=== PATIENT | male | born 1975 | race Caucasian/White ===

== ENCOUNTER 2023-04-16 19:39 | Outpatient (REF) | payer MEDICAID, SELFPAY ==
[2023-04-16 20:25] LABS: Influenza A PCR NEGATIVE (Negative); Influenza B PCR NEGATIVE (Negative); Resp Syncy Virus RNA Qual PCR NEGATIVE (Negative); SARS COV2 PCR INHOUSE NEGATIVE (Negative)
== END 2023-04-16 19:40 | disposition home or self-care (01) ==
LOC: HO.HHCLNP 19:39
PROVIDERS: Visit Provider Family Medicine
DX: Z11.52 Encounter for screening for COVID-19 (principal); R05.9 Cough, unspecified
CPT/HCPCS: 0241U

== ENCOUNTER 2023-08-08 14:33 | Outpatient (REF) | payer MEDICAID, SELFPAY ==
[2023-08-08 17:21] LABS: MANUAL DIFF FLAG NO
[2023-08-08 17:26] LABS: Basophils Percent Auto 0.4 % (0-2); Eosinophils Percent Auto 0.4 % (0-4); Hematocrit 40.6 % (42.0-52.0); Hemoglobin 12.8 g/dl (14.0-18.0); Imm Gran Abs Auto 0.02 X10*3/uL (0.00-0.03); Imm Gran Pct Auto 0.3 % (0.0-0.4); Lymphocytes Absolute Auto 1.9 X10*3/uL (1.2-4.9); Lymphocytes Percent Auto 24.6 % (20-40); Mean Corpuscular HGB Conc 31.5 g/dl (31.0-36.0); Mean Corpuscular Hemoglobin 27.8 pg (27.0-33.0); Mean Corpuscular Volume 88.1 fL (80.0-98.0); Monocytes Absolute Auto 0.5 X10*3/uL (0.1-1.2); Monocytes Percent Auto 6.8 % (2-11); Neutrophils Absolute Auto 5.3 x10*3/uL (2.0-8.3); Neutrophils Percent Auto 67.5 % (45-73); Platelet Count 243 X10*3/uL (160-400); Red Blood Count 4.61 X10*6/uL (4.60-5.80); Red Cell Distribution Width 14.1 % (11.0-16.0); White Blood Count 7.8 X10*3/uL (4.8-10.8)
[2023-08-08 17:50] LABS: Alanine Aminotransferase 31 U/L (0-40); Albumin Level 4.6 g/dL (3.5-5.0); Alkaline Phosphatase 77 U/L (39-117); Anion Gap 10 (12-20); Aspartate Amino Transferase 31 U/L (5-37); Bilirubin Total 0.3 mg/dL (0.0-1.0); Blood Urea Nitrogen 13 mg/dL (9-16); Calcium 9.3 mg/dL (8.4-10.2); Carbon Dioxide 30 mmol/L (22-29); Chloride 103 mmol/L (96-108); Cholesterol 292 mg/dL (<200); Estimated Glomerular Filt Rate > 60; Glucose Random 81 mg/dL (60-115); HDL Cholesterol 42 mg/dL (>40); LDL Cholesterol Calculated 213 mg/dL (<100); Sodium 139 mmol/L (135-145); Total Protein 7.9 g/dL (6.5-8.0); Triglycerides 188 mg/dL (<150)
[2023-08-08 18:05] LABS: TSH reflex Free T4 1.23 uIU/mL (0.32-4.0)
== END 2023-08-08 14:34 | disposition home or self-care (01) ==
LOC: HO.CHCLDS 14:33
PROVIDERS: Visit Provider Internal Medicine
DX: I10 Essential (primary) hypertension (principal); D64.9 Anemia, unspecified
CPT/HCPCS: 36415; 80053; 80061; 84443; 85025

== ENCOUNTER 2023-12-11 15:38 | Outpatient (REF) | payer MEDICAID, SELFPAY ==
[2023-12-11 17:31] LABS: MANUAL DIFF FLAG NO
[2023-12-11 17:33] LABS: Basophils Percent Auto 0.2 % (0-2); Eosinophils Percent Auto 0.4 % (0-4); Hematocrit 43.9 % (42.0-52.0); Hemoglobin 14.1 g/dl (14.0-18.0); Imm Gran Abs Auto 0.04 X10*3/uL (0.00-0.03); Imm Gran Pct Auto 0.4 % (0.0-0.4); Lymphocytes Absolute Auto 1.3 X10*3/uL (1.2-4.9); Lymphocytes Percent Auto 13.4 % (20-40); Mean Corpuscular HGB Conc 32.1 g/dl (31.0-36.0); Mean Corpuscular Hemoglobin 28.1 pg (27.0-33.0); Mean Corpuscular Volume 87.6 fL (80.0-98.0); Mean Platelet Volume 10.6 fL (9.4-12.4); Monocytes Absolute Auto 0.6 X10*3/uL (0.1-1.2); Monocytes Percent Auto 6.4 % (2-11); Neutrophils Absolute Auto 7.9 x10*3/uL (2.0-8.3); Neutrophils Percent Auto 79.2 % (45-73); Platelet Count 230 X10*3/uL (160-400); Red Blood Count 5.01 X10*6/uL (4.60-5.80); Red Cell Distribution Width 14.5 % (11.0-16.0)
[2023-12-11 18:17] LABS: Anion Gap 13 (12-20); Blood Urea Nitrogen 12 mg/dL (9-16); Calcium 10.1 mg/dL (8.4-10.2); Carbon Dioxide 29 mmol/L (22-29); Chloride 102 mmol/L (96-108); Estimated Glomerular Filt Rate > 60; Glucose Fasting 97 mg/dL (60-99); Potassium 4.2 mmol/L (3.3-5.1); Sodium 140 mmol/L (135-145)
[2023-12-11 18:36] LABS: TSH reflex Free T4 0.43 uIU/mL (0.32-4.0)
[2023-12-17 12:48] LABS: Testosterone, Free 72.9 pg/mL (35.0-155.0); Testosterone, Total 510 ng/dL (250-1100)
== END 2023-12-11 15:39 | disposition home or self-care (01) ==
LOC: HO.CHCLDS 15:38
PROVIDERS: Visit Provider Internal Medicine
DX: R00.0 Tachycardia, unspecified (principal); N52.8 Other male erectile dysfunction; F33.2 Major depressive disorder, recurrent severe without psychotic features
CPT/HCPCS: 36415; 80048; 84402; 84403; 84443; 85025

== ENCOUNTER 2025-03-02 14:51 | Outpatient (REF) | payer MEDICAID, SELFPAY ==
[2025-03-02 18:37] LABS: MANUAL DIFF FLAG NO
[2025-03-02 18:47] LABS: Hematocrit 41.8 % (42.0-52.0); Hemoglobin 13.0 g/dl (14.0-18.0); Imm Gran Abs Auto 0.02 X10*3/uL (0.00-0.03); Imm Gran Pct Auto 0.3 % (0.0-0.4); Lymphocytes Absolute Auto 1.9 X10*3/uL (1.2-4.9); Mean Corpuscular HGB Conc 31.1 g/dl (31.0-36.0); Mean Corpuscular Hemoglobin 27.5 pg (27.0-33.0); Mean Corpuscular Volume 88.4 fL (80.0-98.0); NRBC Abs Auto 0.000 X10*3/uL (0.0-0.012); NRBC Pct Auto 0.0 /100WBC (0.0-0.2); Platelet Count 263 X10*3/uL (160-400); Red Blood Count 4.73 X10*6/uL (4.60-5.80); White Blood Count 7.3 X10*3/uL (4.8-10.8)
[2025-03-02 19:33] LABS: Alanine Aminotransferase 47 U/L (0-40); Albumin Level 4.6 g/dL (3.5-5.0); Alkaline Phosphatase 78 U/L (39-117); Anion Gap 10 (12-20); Aspartate Amino Transferase 60 U/L (5-37); Blood Urea Nitrogen 10 mg/dL (9-16); Calcium 9.4 mg/dL (8.4-10.2); Carbon Dioxide 31 mmol/L (22-29); Chloride 104 mmol/L (96-108); Cholesterol 229 mg/dL (<200); Estimated Glomerular Filt Rate > 60; HDL Cholesterol 45 mg/dL (>40); Potassium 4.3 mmol/L (3.3-5.1); Sodium 141 mmol/L (135-145); Total Protein 7.3 g/dL (6.5-8.0); Triglycerides 123 mg/dL (<150)
--- OUTSIDE RECORDS SUMMARY | 2025-03-02 21:07 | XMS_ITS | Encounter Summary ---
Author Organization [employer] Address 75 [facility] 7t [place] [address] Care Team Providers Care Keypuncher Name Role Phone Luis Leon MD Primary Care Provider [phone] Reason for Visit * Reason Comments Med Refill Encounter Details Date Type Department Care Team ([facility] st Contact Info) Description 11/30/2022 Refill [facility] CHC MED & PEDS [address] [place] [address] Luis Leon MD [address] [place] [address] Primary insomnia Social History Tobacco Use Types Packs/Day Years Used Date Smoking Tobacco: Every Day Cigarettes Cigars Smokeless Tobacco: Former Alcohol Use Standard Drinks/Week Comments Never 0 (1 standard drink = 0.6 oz pur e alcohol) Depression Answer Date Recorded Patient Health Questionnaire-9 Score 12 06/07/2022 Depression Answer Date Recorded Patient Health Questionnaire-2 Score 2 06/07/2022 Sex and Gender Information Value Date Recorded Sex Assigned at Male 03/11/2022 10:38 AM EDT Legal Sex Male 10:38 AM EDT Gender Identity Male 03/11/2022 10:38 AM EDT Sexual Orientation Choose not to disclose 2021 10:38 AM EDT COVID-19 Exposure Response Date Recorded In the last 10 days, have yo u been in contact with someone who was confirmed or suspected to have Coronavirus/COVID-19? No / Unsure 11/14/2022 9:17 AM EDT documented as of this encounter Plan of Treatment Upcoming Encounters Date Type Department Care Team (Late st Contact Info) Description 03/16/2025 11:00 AM EST Office Visit [facility] ADULT DENTAL [address] [place] [address] Niels Levin DMD 505 [place] [address] documented as of this encounter Visit Diagnoses Diagnosis Primary insomnia Persistent disorder of initiating or maintaining sleep documented in this encounter Additional Health Concerns Assessment Noted Time PHQ-9 Depression Total Score: 12 023 2:15 PM EST documented as of this encounter Care Teams Keypuncher Relationship Specialty Start Date End Date Luis Leon MD [address] [place] [address] PCP - General Internal Medicine 12/21/20 documented as of this encounter
--- OUTSIDE RECORDS SUMMARY | 2025-03-02 21:07 | XMS_ITS | Encounter Summary ---
Author Organization [employer] Address 75 [facility] 7t [place] [address] Care Team Providers Care Rug Measurer Name Role Phone Luis Leon MD Primary Care Provider [phone] Encounter Details Date Type Department Care Team (Late st Contact Info) Description 06/09/2023 Orders Only [facility] CHC MED & PEDS [address] [place], [place] [phone] Luis Leon MD [address] [place] [address] Annual physical exam (Primary Dx); Essential hypertension; Normocytic anemia Social History Tobacco Use Types Packs/Day Years Used Date Smoking Tobacco: Every Day Cigarettes Cigars Smokeless Tobacco: Former Alcohol Use Standard Drinks/Week Comments Never 0 (1 standard drink = 0.6 oz pur e alcohol) Depression Answer Date Recorded Patient Health Questionnaire-9 Score 12 06/07/2022 Housing Stability Answer Date Recorded What is your housing situation today? I have chavez burch 03/03/[address] you li ve. Do you have problems with any of the following? None of the above 03/03/2023 Food Insecurity Answer Date Recorded Within the past 12 months, y ou worried that your food would run out before you got money to buy more: Never True 03/03/2023 Within the past 12 months,th e food you bought just didn't last and you didn't have enough money to get more: Never True Transportation Answer Date Recorded In the past 12 months, has l ack of transportation kept you from medical appts, meetings, work or from getting things needed for daily living? No 03/03/2023 Utilities Answer Date Recorded In the past 12 months, has t he electric, gas, oil or water company threatened to shut off services in your home? No 03/03/2023 Depression Answer Date Recorded Patient Health Questionnaire-2 Score 2 06/07/2022 Sex and Gender Information Value Date Recorded Sex Assigned at Male 03/11/2022 10:38 AM EDT Legal Sex Male 10:38 AM EDT Gender Identity Male 03/11/2022 10:38 AM EDT Sexual Orientation Choose not to disclose 2021 10:38 AM EDT documented as of this encounter Plan of Treatment Upcoming Encounters Date Type Department Care Team (Late st Contact Info) Description 03/16/2025 11:00 AM EST Office Visit [facility] ADULT DENTAL [address] [place] [address] Niels Levin, DMD [address] [place] [address] documented as of this encounter Procedures Procedure Name Priority Date/Time Associated Diagnosis Comments TSH W/REFLEX TO FT4 Routine 08/08/2023 2 :33 PM EDT Normocytic anemia CBC WITH AUTO DIFFERENTIAL Routine 08/08/2023 2:33 PM EDT Normocytic anemia LIPID PANEL, STANDARD Routine 08/08/2023 2:33 PM EDT Essential hypertension COMPREHENSIVE METABOLIC PANEL Routine 08/08/2023 2:33 PM EDT Essential hypertension documented in this encounter Results * (ABNORMAL) Lipid Panel, Standard (08/08/2023 2:33 PM EDT) Triglycerides 188(H) <150 mg/dL [facility] Comment:Desirable Triglyceri de: less than 150 mg/dLBorderline High Triglyceride 150-199 mg/dLHigh Triglyceride: 200-499 mg/dLVery High Triglyceride: greater than or equal to 5OO mg/dL Cholesterol 292(H) <200 mg/dL [facility] Comment:Desirable Cholestero l: less than 200 mg/dLBorderline High Cholesterol: 200-239 mg/dLHigh Cholesterol: greater than 239 mg/dL LDL Cholesterol Calculated 213(H) <100 mg/dL [facility] Comment:Desirable LDL: less than 100 mg/dLNear Optimal/Above Optimal LDL: 110- 129 mg/dLBorderline High LDL: 130-159 mg/dLHigh LDL: 160-189 mg/dLVery High LDL: greater than or equal to 190 mg/dL HDL Cholesterol 42 >40 mg/dL [facility] Comment:Desirable HDL: great er than 40 mg/dL Note: This HDL assay may give artificially low results in patients with liver disease. Blood Venous blood specimen / Unknown 08/08/2023 2:33 PM EDT 08/08/2023 5:16 PM EDT Luis Leon MD LAB BLOOD ORDERABLES Final Result [facility] [address] [place] [phone] * (ABNORMAL) CBC auto differential (08/08/2023 2:33 PM EDT) White Blood Count 7.8 4.8 - 10.8 X10*3/uL [facility] Red Blood Count 4.61 4.60 - 5.80 X10*6/uL [facility] Hemoglobin 12.8(L) 14.0 - 18.0 g/dl [facility] Hematocrit 40.6(L) 42.0 - 52.0 % [facility] Mean Corpuscular Volume 88.1 80.0 - 98.0 fL [facility] Mean Corpuscular Hemoglobin 27.8 27.0 - 33.0 pg [facility] Mean Corpuscular HGB Conc 31.5 31.0 - 36.0 g/dl [facility] Red Cell Distribution Width 14.1 11.0 - 16.0 % [facility] Platelet Count 243 160 - 400 X10*3/uL [facility] Mean Platelet Volume 10.0 9.4 - 12.4 fL [facility] Neutrophils Percent Auto 67.5 45 - 73 % [facility] Imm Gran Pct Auto 0.3 0.0 - 0.4 % [facility] Lymphocytes Percent Auto 24.6 20 - 40 % [facility] Monocytes Percent Auto 6.8 2 - 11 % [facility] Eosinophils Percent Auto 0.4 0 - 4 % [facility] Basophils Percent Auto 0.4 0 - 2 % [facility] NRBC Pct Auto 0.0 0.0 - 0.2 /100WBC [facility] Neutrophils Absolute Auto 5.3 2.0 - 8.3 x10*3/uL [facility] Imm Gran Abs Auto 0.02 0.00 - 0.03 X10*3/uL [facility] Lymphocytes Absolute Auto 1.9 1.2 - 4.9 X10*3/uL [facility] Monocytes Absolute Auto 0.5 0.1 - 1.2 X10*3/uL [facility] Eosinophils Absolute Auto 0.0 0.0 - 0.4 X10*3/uL [facility] Basophils Absolute Auto 0.0 0.0 - 0.2 X10*3/uL [facility] NRBC Abs Auto 0.000 0.0 - 0.012 X10*3/uL [facility] Blood Venous blood specimen / Unknown 08/08/2023 2:33 PM EDT 08/08/2023 5:16 PM EDT us Luis Leon MD LAB BLOOD ORDERABLES Final Result [facility] [address] [place] [address] [phone] * TSH W/Reflex to FT4 (08/08/2023 2:33 PM EDT) TSH reflex Free T4 1.23 0.32 - 4.0 uIU/mL [facility] Blood Venous blood specimen / Unknown 08/08/2023 2:33 PM EDT 08/08/2023 5:16 PM EDT us Luis Leon MD LAB BLOOD ORDERABLES Final Result [facility] [address] [place] [address] [phone] * (ABNORMAL) Comprehensive Metabolic Panel (08/08/2023 2:33 PM EDT) Sodium 139 135 - 145 mmol/L [facility] Potassium 4.0 3.3 - 5.1 mmol/L [facility] Chloride 103 96 - 108 mmol/L [facility] Carbon Dioxide 30(H) 22 - 29 mmol/L [facility] Anion Gap 10(L) 12 - 20 [facility] Urea Nitrogen (BUN) 13 9 - 16 mg/dL [facility] Creatinine, Serum 1.01 0.5 - 1.4 mg/dL [facility] Estimated Glomerular Filt Rate >60 [facility] Comment:NOTE: For -Am erican individuals, multiply the result by 1.210.Chronic Kidney Disease: Estimated GFR < 60 mL/min/1.72q2Xybmak Kidney Disease: Estimated GFR < 15 mL/min/1.73m2 Glucose 81 60 - 115 mg/dL [facility] Calcium 9.3 8.4 - 10.2 mg/dL [facility] Bilirubin, Total 0.3 0.0 - 1.0 mg/dL [facility] Aspartate Amino Transferase 31 5 - 37 U/L [facility] Alanine Aminotransferase 31 0 - 40 U/L [facility] Total Protein 7.9 6.5 - 8.0 g/dL [facility] Albumin Level 4.6 3.5 - 5.0 g/dL [facility] Alkaline Phosphatase 77 39 - 117 U/L [facility] Blood Venous blood specimen / Unknown 08/08/2023 2:33 PM EDT 08/08/2023 5:16 PM EDT us Luis Leon MD LAB BLOOD ORDERABLES Final Result Performing Organization Address City/State/[facility] Co de Phone Number [facility] [address] [place] [address] [phone] documented in this encounter Visit Diagnoses Diagnosis Annual physical exam- Primary Routine general medical examination at a health care facility Essential hypertension Unspecified essential hypertension Normocytic anemia Unspecified anemia documented in this encounter Additional Health Concerns Assessment Noted Time PHQ-9 Depression Total Score: 12 023 2:15 PM EST documented as of this encounter Care Teams Rug Measurer Relationship Specialty Start Date End Date Luis Leon MD [address] [place] [address] PCP - General Internal Medicine 12/21/20 documented as of this encounter
--- OUTSIDE RECORDS SUMMARY | 2025-03-02 21:07 | XMS_ITS | Encounter Summary ---
Author Organization [employer] Address 75 [facility] 7t [place] [address] Care Team Providers Care Truck Mechanic Name Role Phone Luis Leon MD Primary Care Provider [phone] Reason for Visit * Reason Comments Med Refill Encounter Details Date Type Department Care Team ([facility] st Contact Info) Description 11/15/2022 Refill [facility] CHC MED & PEDS [address] [place] [address] Luis Leon MD [address] [place] [address] Primary insomnia Social History Tobacco Use Types [...] Description 03/16/2025 11:00 AM EST Office Visit [facility] ADULT DENTAL [address] [place] [address] Niels Levin DMD [address] [place] [address] documented as of this encounter Visit Diagnoses Diagnosis Primary insomnia Persistent disorder of initiating or maintaining sleep documented in this encounter Additional Health Concerns Assessment Noted Time PHQ-9 Depression Total Score: 12 023 2:15 PM EST documented as of this encounter Care Teams Truck Mechanic Relationship Specialty Start Date End Date Luis Leon MD [address] [place] [address] PCP - General Internal Medicine 12/21/20 documented as of this encounter
--- OUTSIDE RECORDS SUMMARY | 2025-03-02 21:07 | XMS_ITS | Encounter Summary ---
Author Organization [employer] Address 75 [facility] 7t [place] [address] Care Team Providers Care Lens Polisher Hand Name Role Phone Luis Leon MD Primary Care Provider [phone] Reason for Visit * Reason Comments Med Refill Encounter Details Date Type Department Care Team (Late st Contact Info) Description 07/03/2023 Refill [facility] DENT[facility] [address] [place] [address] Sarah Velázquez, BDS [address] [place], [place] [phone] Social History Tobacco Use Types Packs/Day Years [...] Description 03/16/2025 11:00 AM EST Office Visit [facility] ADULT DENTAL [address] [place] [address] Niels Levin, RODNEY [address] [place] [address] documented as of this encounter Visit Diagnoses Not on filedocumented in this encounter Additional Health Concerns Assessment Noted Time PHQ-9 Depression Total Score: 12 023 2:15 PM EST documented as of this encounter Care Teams Lens Polisher Hand Relationship Specialty Start Date End Date Luis Leon MD [address] [place] [address] PCP - General Internal Medicine 12/21/20 documented as of this encounter
--- OUTSIDE RECORDS SUMMARY | 2025-03-02 21:07 | XMS_ITS | Encounter Summary ---
Author Organization [employer] Address 75 [facility] 7t [place] [address] Care Team Providers Care Strainer Mill Operator Name Role Phone Luis Leon MD Primary Care Provider [phone] Reason for Visit * Reason Onset Date Comments Med Refill 05/18/2024 Encounter Details Date Type Department Care Team (Late st Contact Info) Description 05/18/2024 Refill [facility] CHC MED & PEDS [address] [place] [address] Luis Leon MD [address] [place] [address] Other male erectile dysfunction Social History Tobacco Use Types Packs/Day Years Used Date Smoking Tobacco: Every Day Cigarettes Cigars Smokeless Tobacco: Former Alcohol Use Standard Drinks/Week Comments Never 0 (1 standard drink = 0.6 oz pur e alcohol) Depression Answer Date Recorded Patient Health Questionnaire-9 Score 18 08/06/2023 Patient Health Questionnaire-9 Score 18 08/06/2023 Last PHQ-9: Questionnaire Data Not on file 0 08/06/2023 Housing Stability Answer Date Recorded What is [...] Answer Date Recorded Patient Health Questionnaire-2 Score 6 08/06/2023 Sex and Gender Information Value Date Recorded [...] 11:00 AM EST Office Visit [facility] ADULT DENTAL [address] [place] [address] Niels Levin, DMD [address] [place] [address] documented as of this encounter Visit Diagnoses Diagnosis Other male erectile dysfunction documented in this encounter Additional Health Concerns Assessment Noted Time PHQ-9 Depression Total Score: 18 024 10:20 AM EDT documented as of this encounter Care Teams Strainer Mill Operator Relationship Specialty Start Date End Date Luis Leon MD [address] [place] [address] PCP - General Internal Medicine 12/21/20 documented as of this encounter
--- OUTSIDE RECORDS SUMMARY | 2025-03-02 21:07 | XMS_ITS | Encounter Summary ---
Author Organization [employer] Address 75 [facility] 7 [place] [address] Care Team Providers Care Collection Administrator Name Role Phone Luis Leon MD Primary Care Provider [phone] Encounter Details Date Type Department Care Team (Late st Contact Info) Description 05/17/2024 Orders Only [facility] CHC MED & PEDS [address] [place], [place] [phone] Luis Leon MD [address] [place] [address] Social History Tobacco Use Types Packs/Day Years [...] Description 03/16/2025 11:00 AM EST Office Visit [facility] ADULT DENTAL [address] [place] [address] Niels Levin, RODNEY [address] [place] [address] documented as of this encounter Visit Diagnoses Not on filedocumented in this encounter Additional Health Concerns Assessment Noted Time PHQ-9 Depression Total Score: 18 024 10:20 AM EDT documented as of this encounter Care Teams Collection Administrator Relationship Specialty Start Date End Date Luis Leon MD [address] [place] [address] PCP - General Internal Medicine 12/21/20 documented as of this encounter
--- OUTSIDE RECORDS SUMMARY | 2025-03-02 21:07 | XMS_ITS | Encounter Summary ---
Author Organization [employer] Address 75 [facility] 7t [place] [address] Care Team Providers Care Vacuum Metalizing Supervisor Name Role Phone Luis Leon MD Primary Care Provider [phone] Reason for Visit * Reason Onset Date Comments Med Refill 11/14/2022 Encounter Details Date Type Department Care Team (Late st Contact Info) Description 11/14/2022 Refill [facility] CHC MED & PEDS [address] [place] [address] Luis Leon MD [address] [place] [address] Nel Social History Tobacco Use Types Packs/Day Years [...] Description 03/16/2025 11:00 AM EST Office Visit [facility] ADULT DENTAL [address] [place] [address] Mitchell Levinie, DMD [address] [place] [address] documented as of this encounter Visit Diagnoses Diagnosis Melasma Other dyschromia documented in this encounter Additional Health Concerns Assessment Noted Time PHQ-9 Depression Total Score: 12 023 2:15 PM EST documented as of this encounter Care Teams Vacuum Metalizing Supervisor Relationship Specialty Start Date End Date Luis Leon MD [address] [place] [address] PCP - General Internal Medicine 12/21/20 documented as of this encounter
--- OUTSIDE RECORDS SUMMARY | 2025-03-02 21:07 | XMS_ITS | Encounter Summary ---
Author Organization [employer] Address [address] [place] [address] 7t [place] [address] Care Team Providers Care Smart Energy Specialist Name Role Phone Luis Leon MD Primary Care Provider [phone] Reason for Visit * Reason Comments Med Refill Encounter Details Date Type Department Care Team ([facility] st Contact Info) Description 05/14/2024 Refill [facility] CHC MED & PEDS [address] [place] [address] Norma Jones MD [address] [place] [address] Intertrigo of web of toe Social History Tobacco Use Types Packs/Day Years [...] Upcoming Encounters Date Type Department Care Team ([facility] st Contact Info) Description 03/16/2025 11:00 AM EST Office Visit [facility]C ADULT DENTAL [address] [place] [address] Niels Levin DMD [address] [place] [address] documented as of this encounter Visit Diagnoses Diagnosis Intertrigo of web of toe documented in this encounter Additional Health Concerns Assessment Noted Time PHQ-9 Depression Total Score: 18 024 10:20 AM EDT documented as of this encounter Care Teams Smart Energy Specialist Relationship Specialty Start Date End Date Luis Leon MD [address] [place] [address] PCP - General Internal Medicine 12/21/20 documented as of this encounter
--- OUTSIDE RECORDS SUMMARY | 2025-03-02 21:07 | XMS_ITS | Encounter Summary ---
Author Organization [employer] Address [address] [place] [address] 7t [place] [address] Care Team Providers Care Pr Manager Name Role Phone Luis Leon MD Primary Care Provider [phone] Reason for Visit * Reason Onset Date Comments Med Refill 02/13/2024 Encounter Details Date Type Department Care Team (Late st Contact Info) Description 02/13/2024 Refill [facility] MED & PEDS [address] [place] [address] Norma Jones MD [address] [place] [address] Other male erectile dysfunction Social History Tobacco [...] Description 03/16/2025 11:00 AM EST Office Visit [facility] ADULT DENTAL [address] [place] [address] Niels Levin, DMD [address] [place] [address] documented as of this encounter Visit Diagnoses Diagnosis Other male erectile dysfunction documented in this encounter Additional Health Concerns Assessment Noted Time PHQ-9 Depression Total Score: 18 024 10:20 AM EDT documented as of this encounter Care Teams Pr Manager Relationship Specialty Start Date End Date Luis Leon MD [address] [place] [address] PCP - General Internal Medicine 12/21/20 documented as of this encounter
--- OUTSIDE RECORDS SUMMARY | 2025-03-02 21:07 | XMS_ITS | Encounter Summary ---
Author Organization [employer] Address [address] [place] [address] 7t [place] [address] Care Team Providers Care Lettuce Trimmer Name Role Phone Luis Leon MD Primary Care Provider [phone] Reason for Visit * Reason Onset Date Comments Med Refill 02/09/2024 Encounter Details Date Type Department Care Team (Late st Contact Info) Description 02/09/2024 Refill [facility] MED & PEDS [address] [place] [address] Norma Jones MD [address] [place] [address] Other male erectile dysfunction Social History Tobacco [...] Description 03/16/2025 11:00 AM EST Office Visit [facility] ADULT DENTAL [address] [place] [address] Niels Levin, DMD [address] [place] [address] documented as of this encounter Visit Diagnoses Diagnosis Other male erectile dysfunction documented in this encounter Additional Health Concerns Assessment Noted Time PHQ-9 Depression Total Score: 18 024 10:20 AM EDT documented as of this encounter Care Teams Lettuce Trimmer Relationship Specialty Start Date End Date Luis Leon MD [address] [place] [address] PCP - General Internal Medicine 12/21/20 documented as of this encounter
--- OUTSIDE RECORDS SUMMARY | 2025-03-02 21:08 | XMS_ITS | Encounter Summary ---
Author Organization [employer] Address 75 [facility] 7t [place] [address] Care Team Providers Care Geometry Professor Name Role Phone Luis Leon MD Primary Care Provider [phone] Reason for Visit * Reason Onset Date Comments Med Refill 11/14/2022 Encounter Details Date Type Department Care Team (Late st Contact Info) Description 11/14/2022 Refill [facility] CHC MED & PEDS [address] [place] [address] Luis Leon MD [address] [place] [address] Primary insomnia Social History Tobacco Use Types [...] Description 03/16/2025 11:00 AM EST Office Visit [facility] CHC ADULT DENTAL [address] [place] [address] Niels Levin, RODNEY [address] [place] [address] documented as of this encounter Visit Diagnoses Diagnosis Primary insomnia Persistent disorder of initiating or maintaining sleep documented in this encounter Additional Health Concerns Assessment Noted Time PHQ-9 Depression Total Score: 12 023 2:15 PM EST documented as of this encounter Care Teams Geometry Professor Relationship Specialty Start Date End Date Luis Leon MD [address] [place] [address] PCP - General Internal Medicine 12/21/20 documented as of this encounter
--- OUTSIDE RECORDS SUMMARY | 2025-03-02 21:08 | XMS_ITS | Encounter Summary ---
Author Organization [employer] Address 75 [facility] 7t [place] [address] Care Team Providers Care Wearing Apparel Shaker Name Role Phone Luis Leon MD Primary Care Provider [phone] Reason for Visit * Reason Comments Med Refill Encounter Details Date Type Department Care Team ([facility] st Contact Info) Description 07/25/2022 Refill [facility] CHC MED & PEDS [address] [place] [address] Luis Leon MD [address] [place] [address] Primary insomnia Social History Tobacco Use Types [...] was confirmed or suspected to have Coronavirus/COVID-19? Yes 07/19/2022 7:56 AM EST documented as of this encounter Plan of Treatment Upcoming Encounters Date Type Department Care Team (Late st Contact Info) Description 03/16/2025 11:00 AM EST Office Visit [facility] ADULT DENTAL [address] [place] [address] Niels Levin DMD [address] [place] [address] documented as of this encounter Visit Diagnoses Diagnosis Primary insomnia Persistent disorder of initiating or maintaining sleep documented in this encounter Additional Health Concerns Assessment Noted Time PHQ-9 Depression Total Score: 12 023 2:15 PM EST documented as of this encounter Care Teams Wearing Apparel Shaker Relationship Specialty Start Date End Date Luis Leon MD [address] [place] [address] PCP - General Internal Medicine 12/21/20 documented as of this encounter
--- OUTSIDE RECORDS SUMMARY | 2025-03-02 21:08 | XMS_ITS | Encounter Summary ---
Author Organization [employer] Address [address] [facility] 7t [place] [address] Care Team Providers Care Alcohol Rubber Name Role Phone Luis Leon MD Primary Care Provider [phone] Encounter Details Date Type Department Care Team (Late st Contact Info) Description 06/29/2024 Orders Only [facility] MED & PEDS [address] [place], [place] [phone] Luis Leon MD [address] [place] [address] Social History Tobacco Use Types Packs/Day Years Used Date Smoking Tobacco: Every Day Cigarettes Cigars Smokeless Tobacco: Former Alcohol Use Standard Drinks/Week Comments Never 0 (1 standard drink = 0.6 oz pur e alcohol) Depression Answer Date Recorded Patient Health Questionnaire-9 Score 11 06/24/2024 Patient Health Questionnaire-9 Score 11 06/24/2024 Last PHQ-9: Questionnaire Data Not on file 0 06/24/2024 Housing Stability Answer Date Recorded What is your housing situation today? I have chavez burch 06/17/[address] you li ve. Do you have problems with any of the following? None of the above 06/17/2024 Food Insecurity Answer Date Recorded Within the past 12 months, y ou worried that your food would run out before you got money to buy more: Never True 06/17/2024 Within the past 12 months,th e food you bought just didn't last and you didn't have enough money to get more: Never True 10/2024 Transportation Answer Date Recorded In the past 12 months, has l ack of transportation kept you from medical appts, meetings, work or from getting things needed for daily living? No 06/17/2024 Utilities Answer Date Recorded In the past 12 months, has t he electric, gas, oil or water company threatened to shut off services in your home? No 06/17/2024 Depression Answer Date Recorded Patient Health Questionnaire-2 Score 3 06/24/2024 Internet Access Answer Date Recorded Internet Access Q1 Yes 06/17/2024 Internet Access Q2 Not on file 06/17/2024 Sex and Gender Information Value Date Recorded [...] Description 03/16/2025 11:00 AM EST Office Visit [facility] [address] [place] [address] Niels Levin, DMD [address] [place] [address] documented as of this encounter Visit Diagnoses Not on filedocumented in this encounter Additional Health Concerns Assessment Noted Time PHQ-9 Depression Total Score: 11 025 2:09 PM EST documented as of this encounter Care Teams Alcohol Rubber Relationship Specialty Start Date End Date Luis Leon MD [address] [place] [address] PCP - General Internal Medicine 12/21/20 documented as of this encounter
--- OUTSIDE RECORDS SUMMARY | 2025-03-02 21:08 | XMS_ITS | Encounter Summary ---
Author Organization [employer] Address [address] [place] [address] 7 [place] [address] Care Team Providers Care Marketing Research Coordinator Name Role Phone Luis Leon MD Primary Care Provider [phone] Reason for Visit * Reason Comments Med Refill Encounter Details Date Type Department Care Team (Late st Contact Info) Description 01/21/2023 Refill [facility] MED & PEDS [address] [place] [address] Luis Leon MD [address] [place] [address] Social History Tobacco Use Types Packs/Day Years [...] Description 03/16/2025 11:00 AM EST Office Visit [facility] [address] [place] [address] Niels Levin DMD [address] [place] [address] documented as of this encounter Visit Diagnoses Not on filedocumented in this encounter Additional Health Concerns Assessment Noted Time PHQ-9 Depression Total Score: 12 023 2:15 PM EST documented as of this encounter Care Teams Marketing Research Coordinator Relationship Specialty Start Date End Date Luis Leon MD [address] [place] [address] PCP - General Internal Medicine 12/21/20 documented as of this encounter
--- OUTSIDE RECORDS SUMMARY | 2025-03-02 21:08 | XMS_ITS | Encounter Summary ---
Author Organization [employer] Address [address] [facility] 7t [place] [address] Care Team Providers Care Hourly Team Members Name Role Phone Luis Leon MD Primary Care Provider [phone] Reason for Visit * Reason Onset Date Comments Med Refill 11/11/2023 Encounter Details Date Type Department Care Team (Late st Contact Info) Description 11/11/2023 Refill [facility] & PEDS [address] [place] [address] Luis Leon MD [address] [place] [address] Other male erectile dysfunction Social History Tobacco [...] Description 03/16/2025 11:00 AM EST Office Visit [facility] [address] [place] [address] Niels Levin, DMD 505 [place] [address] documented as of this encounter Visit Diagnoses Diagnosis Other male erectile dysfunction documented in this encounter Additional Health Concerns Assessment Noted Time PHQ-9 Depression Total Score: 18 024 10:20 AM EDT documented as of this encounter Care Teams Hourly Team Members Relationship Specialty Start Date End Date Luis Leon MD [address] [place] [address] PCP - General Internal Medicine 12/21/20 documented as of this encounter
--- OUTSIDE RECORDS SUMMARY | 2025-03-02 21:08 | XMS_ITS | Encounter Summary ---
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); Primary insomnia; Other male erectile dysfunction Social History Tobacco [...] Description 03/16/2025 11:00 AM EST Office Visit [facility] [address] [place] [address] Niels Levin, RODNEY [address] [place] [address] documented as of this encounter Visit Diagnoses Diagnosis Severe episode of recurrent major depressive disorder, 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
--- OUTSIDE RECORDS SUMMARY | 2025-03-02 21:08 | XMS_ITS | Encounter Summary ---
Author Organization [employer] Address [address] [facility] 7t [place] [address] Care Team Providers Care Retort Unloader Name Role Phone Luis Leon MD Primary Care Provider [phone] Reason for Visit * Reason Onset Date Comments Med Refill 06/25/2024 Encounter Details Date Type Department Care Team (Late st Contact Info) Description 06/25/2024 Refill [facility] MED & PEDS [address] [place] [address] Luis Leon MD [address] [place] [address] Toe web intertrigo Social History Tobacco Use Types Packs/Day Years [...] Description 03/16/2025 11:00 AM EST Office Visit [facility] [address] [place] [address] Niels Levin, RODNEY [address] [place] [address] documented as of this encounter Visit Diagnoses Diagnosis Toe web intertrigo documented in this encounter Additional Health Concerns Assessment Noted Time PHQ-9 Depression Total Score: 11 025 2:09 PM EST documented as of this encounter Care Teams Retort Unloader Relationship Specialty Start Date End Date Luis Leon MD [address] [place] [address] PCP - General Internal Medicine 12/21/20 documented as of this encounter
--- OUTSIDE RECORDS SUMMARY | 2025-03-02 21:08 | XMS_ITS | Encounter Summary ---
Author Organization [employer] Address [address] [facility] 7t [place] [address] Care Team Providers Care Production Zone Leader Name Role Phone Luis Leon MD Primary Care Provider [phone] Reason for Visit * Reason Comments Med Refill Encounter Details Date Type Department Care Team ([facility] st Contact Info) Description 08/02/2022 Refill [facility] [address] [place] [address] Luis Leon MD [address] [place] [address] Primary insomnia Social History Tobacco Use Types [...] suspected to have Coronavirus/COVID-19? No / Unsure 07/31/2022 9:04 AM EDT documented as of this encounter Plan of Treatment Upcoming Encounters Date Type Department Care Team (Late st Contact Info) Description 03/16/2025 11:00 AM EST Office Visit [facility] [address] [place] [address] Niels Levin DMD [address] [place] [address] documented as of this encounter Visit Diagnoses Diagnosis Primary insomnia Persistent disorder of initiating or maintaining sleep documented in this encounter Additional Health Concerns Assessment Noted Time PHQ-9 Depression Total Score: 12 023 2:15 PM EST documented as of this encounter Care Teams Production Zone Leader Relationship Specialty Start Date End Date Luis Leon MD [address] [place] [address] PCP - General Internal Medicine 12/21/20 documented as of this encounter
--- OUTSIDE RECORDS SUMMARY | 2025-03-02 21:08 | XMS_ITS | Encounter Summary ---
Author Organization [employer] Address [address] [place] [address] [address]t [place] [address] Care Team Providers Care Commercial Director Name Role Phone Luis Leon MD Primary Care Provider [phone] Reason for Visit * Reason Onset Date Comments Med Refill 07/13/2024 Encounter Details Date Type Department Care Team (Late st Contact Info) Description 07/13/2024 Refill [facility] [address] [place] [address] Niels Levin, DMD [address] [place] [address] Dental caries Social History Tobacco Use Types Packs/Day Years [...] is your housing situation today? I have chavezcollins burch 06/17/[address] you [...] AM EDT documented as of this encounter Miscellaneous Notes * Telephone Encounter - Niels Levin DMD - 07/13/2024 9:32 AM EST Approving, but needs appt for additional refills. documented in this encounter Plan of Treatment Upcoming Encounters Date Type Department Care Team (Late st Contact Info) Description 03/16/2025 11:00 AM EST Office Visit [facility] [address] [place] [address] Niels Levin DMD [address] [place] [address] documented as of this encounter Visit Diagnoses Diagnosis Dental caries Unspecified dental caries documented in this encounter Additional Health Concerns Assessment Noted Time PHQ-9 Depression Total Score: 11 025 2:09 PM EST documented as of this encounter Care Teams Commercial Director Relationship Specialty Start Date End Date Luis Leon MD [address] [place] [address] PCP - General Internal Medicine 12/21/20 documented as of this encounter
--- OUTSIDE RECORDS SUMMARY | 2025-03-02 21:08 | XMS_ITS | Encounter Summary ---
Author Organization [employer] Address [address] [facility] [address]t [place] [address] Care Team Providers Care Heater Worker Name Role Phone Luis Leon MD Primary Care Provider [phone] Encounter Details Date Type Department Care Team (Late st Contact Info) Description 03/14/2023 Abstract [facility] MED[facility] [address] [place] [address] Luis Leon MD [address] [place] [address] Social History Tobacco Use Types Packs/Day Years [...] Description 03/16/2025 11:00 AM EST Office Visit [facility]ULT [facility] [address] [place], [place] [phone] Niels Levin, RODNEY [address] [place], [place] [phone] documented as of this encounter Procedures Procedure Name Priority Date/Time Associated Diagnosis Comments HM COLONOSCOPY Routine 12/12/2021 documented in this encounter Results * Hm Colonoscopy (12/12/2021) Colonoscopy Normal Normal Narrative Rhina Hairston - 12/12/2021 Recommended 10 year follow up Historical Provider HEALTH MAINTENANCE Final Result documented in this encounter Visit Diagnoses Not on filedocumented in this encounter Additional Health Concerns Assessment Noted Time PHQ-9 Depression Total Score: 12 023 2:15 PM EST documented as of this encounter Care Teams Heater Worker Relationship Specialty Start Date End Date Luis Leon MD [address] [place], [place] [phone] PCP - General Internal Medicine 12/21/20 documented as of this encounter
--- OUTSIDE RECORDS SUMMARY | 2025-03-02 21:08 | XMS_ITS | Clinical Summary ---
Author Organization [employer] Address [address] [place] [address] 7[address] [place] [address] Care Team Providers Care Monitoring Engineer Name Role Phone Luis Leon MD Primary Care Provider [phone] Allergies No known active allergies Medications * This document contains information received from the source organization and may not represent a complete record from that organization. capsicum (Zostrix) 0.075 % topical cream Apply topically every 12 (twelve) hours. 2 Active topiramate (Topamax) 100 MG tablet TAKE 1 TABLET BY MOUTH TWICE A DAY 180 tablet 1 3 Active amLODIPine (Norvasc) 10 MG tabletIndication s:Essential hypertension Take 1 tablet (10 mg) by mouth in the morning. 30 tablet 11 4 Active Nyamyc 743751 UNIT/GM powderIndication s:Toe web intertrigo APPLY TO AFFECTED AREA TWICE A DAY 60 g 1 4 Active chlorhexidine (Peridex) 0.12 % solution SWISH 10ML IN MOUTH FOR 30 SECONDS THEN SPIT OUT 3 TIMES A DAY AFTER MEALS 473 mL 2 4 Active SUMAtriptan (Imitrex) 50 MG tabletIndication s:Migraine without aura and without status migrainosus, not intractable take 1 tablet by oral route after onset of migraine; may repeat after 2 hours if headache returns,not to exceed 200mg in 24hrs Strength: 50 mg 9 tablet 11 4 Active sertraline (Zoloft) 50 MG tabletIndication s:Severe episode of recurrent major depressive disorder, without psychotic features (CMS/HCC) (HCC) TAKE 1 TABLET BY MOUTH EVERY DAY IN THE MORNING 90 tablet 1 5 Active nystatin (Mycostatin) [id number] UNIT/GM powderIndication s:Toe web intertrigo Apply topically 2 times daily. 60 g 5 06/24/19 26 Active Sodium Fluoride 1.1 % creamIndications :Dental caries [place] teeth for 2 minutes, morning and night. Spit, do not rinse. Do not eat or drink anything for 30 minutes following use. 112 g 5 Active ferrous sulfate 325 (65 Fe) MG tablet TAKE 1 TABLET BY MOUTH EVERY OTHER DAY 45 tablet 5 Active Sunscreen SPF50 lotionIndication s:Melasma APPLY TOPICALLY EVERY MORNING 296 mL 3 5 Active Additional Information Patient not taking.Reported on 02/02/2025 amitriptyline (Elavil) 25 MG tabletIndication s:Primary insomnia Take 2 tablets (50 mg) by mouth at bedtime. 180 tablet 1 5 Active metoprolol succinate XL (Toprol-XL) 50 MG 24 hr tabletIndication s:Essential hypertension Take 1 tablet (50 mg) by mouth Once per day. 90 tablet 2 5 Active Multiple Vitamin (Daily-Michael Multivitamin) tabletIndication s:Primary insomnia TAKE 1 TABLET BY MOUTH EVERY DAY 90 tablet 1 5 Active tadalafil (Cialis) 5 MG tabletIndication s:Other male erectile dysfunction TAKE 1 TABLET BY MOUTH EVERY MORNING 30 tablet 3 5 Active terbinafine (LamISIL) 250 MG tablet TAKE 1 TABLET (250 MG) BY MOUTH ONCE PER DAY FOR 14 DAYS. 5 Active nicotine polacrilex (Nicorette) 4 MG gumIndications:S moking addiction CHEW AND PARK 1 PIECE OF GUM EVERY 2 HOURS NEEDED FOR SMOKING CESSATION 100 each 5 Active Active Problems Problem Noted Date Diagnosed Date Hypercholesterolemia 06/24/2024 Other male erectile dysfunction 08/08/2023 Severe episode of recurrent major depressive disorder, without psychotic features (CMS/HCC) 08/05/2023 Assessment & Plan (08/06/2023 10:47 AM EDT): During IBH Consult Kavon presenting with depressed mood, loss of interests/pleasure , changes in sleep difficulty falling asleep, psychomotor retardation, trouble concentrating, thoughts of worthlessness or guilt, thoughts about or suicide, fatigue/loss of energy, hopelessness, worthlessness , difficulty concentrating, passive suicidal ideation w/o plan; for a period of 18+ mo, for all symptoms in the context of family issues, financial concern, illness or family illness, and marriage. Kavon had experienced drastic changes in his medical condition due to having a stroke in 2020. Reports family and marital problems which exacerbates sxs of depression. Currently unemployed and having difficulty managing finances. Provider started medication to treat sxs (see PCP note). PLAN: (check all that apply) New/Additional Services needed PCP management On-site non-integrated services Off-site services for Behavioral Health Integration Plan Internal Follow up with [facility] External OP BH therapy referral and OP psychiatry Referral Patient Self Plan Patient to utilize skills provided in intervention , Patient to reach out to [facility] team as needed, Comply with medication , Patient to engage in OP therapy , and Patient to reach out to [facility] as needed. clinician will follow-up with patient in a month. Cough 04/16/2023 Assessment & Plan (04/16/2023 3:03 PM EST): Patient that presented visit with complaints of cough with complications of chest pain will be sent for imaging for further evaluation. In addition, patient will be prescribed Guaifenesin and Doxycyline to treat cough. Advise patient to follow up with [facility] appointment and with PCP. -Imaging: Chest XR Essential hypertension 04/17/2022 Normocytic anemia 07/27/2021 Seizure disorder (CMS/HCC) 07/27/2021 Encounters Date Type Department Care Team Description 03/02/2025 Refill [facility] [address] [place] [address] Luis Leon MD Severe episode of recurrent major depressive disorder, without psychotic features (CMS/HCC) (HCC); Primary insomnia; Other male erectile dysfunction 03/02/2025 Refill [facility] [address] [place], [place] [phone] Norma Jones MD Migraine without aura and without status migrainosus, not intractable 03/01/2025 Telephone [facility] [address] [place] [address] Luis Leon MD Nurse Triage 02/02/2025 1:30 PM EDT Office Visit [facility] [address] [place] [address] Niels Levin DMD Full coverage crown needed for tooth at risk for fracture (Primary Dx) 02/01/2025 Refill [facility] [address] [place] [address] Luis Leon MD Other male erectile dysfunction 02/01/2025 Refill [facility] [address] [place] [address] Luis Leon MD Primary insomnia 01/24/2025 Refill [facility] [address] [place] [address] Luis Leon MD Smoking addiction 01/24/2025 Orders Only [facility] [address] [place] [address] Luis Leon MD 01/20/2025 2:00 PM EDT Office Visit [facility] [address] [place] [address] Niels Levin DMD Secondary dental caries associated with failed or defective dental denominational (Primary Dx); Full coverage crown needed for tooth at risk for fracture 01/18/2025 Travel 01/18/2025 Refill [facility] [address] [place] [address] Luis Leon MD Severe episode of recurrent major depressive disorder, without psychotic features (CMS/HCC) (Primary Dx); Other male erectile dysfunction; Migraine without aura and without status migrainosus, not intractable; Primary insomnia; Essential hypertension; Smoking addiction 01/18/2025 Refill [facility] [address] [place] [address] Norma Jones MD Migraine without aura and without status migrainosus, not intractable; Primary insomnia from Last 3 Months Immunizations Immunization Administration Dates Next Due Hep B, adult 06/09/2023 Influenza injectable quadrivalent preservative f ree 06/09/2023 Influenza, seasonal, injectable, preservative fr ee 06/24/2024 Pneumococcal Conjugate PCV 20 06/09/2023 Tdap 12/04/2021 Social History Tobacco Use Types Packs/Day Years Used Date Smoking Tobacco: Every Day Cigarettes Cigars Smokeless Tobacco: Former Tobacco Cessation:Ready to Q uit: Not Asked; Counseling Given: Not Answered Alcohol Use Standard Drinks/Week Comments Never 0 [...] not to disclose 2021 10:38 AM EDT Last Filed Vital Signs Vital Sign Reading Time Taken Comments Blood Pressure 120/80 01/20/2025 2:13 PM EDT Pulse 72 06/24/2024 1:39 PM EST Temperature 36.7 C (98.1 F) 06/24/2024 1:39 PM EST Respiratory Rate 16 06/24/2024 1:39 PM EST Oxygen Saturation 98% 06/24/2024 1:39 PM EST Inhaled Oxygen Concentration - - Weight 72 kg (158 lb 12.8 oz) 06/24/2024 1:39 PM EST Height 170.2 cm (5' 7 ) 06/24/2024 1:39 PM EST Body Mass Index 24.87 06/24/2024 1:39 PM EST Plan of Treatment Upcoming Encounters Date Type Department Care Team (Late st Contact Info) Description 03/16/2025 11:00 AM EST Office Visit [facility] [address] [place] [address] Niels Levin, DMD [address] [place] [address] Health Maintenance Due Date Last Done Comments CT Colonography 1974 Dental X-Ray: Full Mouth 1974 FIT DNA/Cologuard 1974 FIT 1974 FOBT 1974 Sigmoidoscopy 1974 Disability Screening 1974 Alcohol/Substance Use Screening 1986 Family Planning (PISQ) 1989 Hepatitis C Screening 01/03/1992 Hepatitis B Vaccines (2 of 3 - 19+ 3-dose series) 07/07/2023 06/09/2023 Zoster Vaccines (1 of 2) 01/03/2024 Dental Oral Exam 11/12/2024 05/14/2024 Depression Monitoring 12/22/2024 06/24/2024 , 06/24/2024 Dental Prophylaxis 01/05/2025 07/07/2024, 05/01/2022 COVID-19 Vaccine (3 - 2024-2 6 season) 2025 11/15/2020, 10/02/2020 Influenza Vaccine (#1) 2025 , 06/09/2023 Dental X-Ray: Bitewings 05/15/2025 05/14/19 25, 02/13/2023 SDOH Screening 06/17/2025 06/17/2024 Tobacco Screening 02/02/2026 02/02/2025 Lipid Panel 08/07/2028 03/02/2025, 08/08/2023, 01/22/2021 DTaP/Tdap/Td Vaccines (2 - T d or Tdap) 12/05/2031 12/04/2021 Colonoscopy 12/13/2031 12/12/2021 Colorectal Cancer Screening 12/13/2031 RSV Patients and Patients Aged 60 years or older (1 - 1-dose 75+ series) 2049 HIV Screening Completed 01/22/2021 Pneumococcal Vaccine: 50+ Years Completed 06/09/2023 HIB Vaccines Aged Out No longer eligi ble based on patient's age to complete this topic HPV Vaccines Aged Out No longer eligi ble based on patient's age to complete this topic Hepatitis A Vaccines Aged Out No long er eligible based on patient's age to complete this topic IPV Vaccines Aged Out No longer eligi ble based on patient's age to complete this topic Meningococcal B Vaccine Aged Out No l onger eligible based on patient's age to complete this topic Meningococcal Vaccine Aged Out No bert rahat eligible based on patient's age to complete this topic RSV under 20 months Aged Out No longe r eligible based on patient's age to complete this topic Rotavirus Vaccines Aged Out No longer eligible based on patient's age to complete this topic Procedures Procedure Name Priority Date/Time Associated Diagnosis Comments CBC WITH AUTO DIFFERENTIAL Routine 03/02/2025 2:52 PM EDT Essential hypertension TSH W/REFLEX TO FT4 Routine 03/02/2025 2 :52 PM EDT Hypercholesterolemia LIPID PANEL, STANDARD Routine 03/02/2025 2:52 PM EDT Hypercholesterolemia COMPREHENSIVE METABOLIC PANEL Routine 03/02/2025 2:52 PM EDT Essential hypertension CASE PRESENTATION, DETAILED AND EXTENSIVE TREATMENT PLANNING Routine 02/02/2025 1:30 PM EDT Full coverage crown needed for tooth at risk for fracture 6 CROWN - PORCELAIN/CERAMIC Routine 02/02/2025 1:30 PM EDT Full coverage crown needed for tooth at risk for fracture CASE PRESENTATION, DETAILED AND EXTENSIVE TREATMENT PLANNING Routine 01/20/2025 2:00 PM EDT Secondary dental caries associated with failed or defective dental denominational Full coverage crown needed for tooth at risk for fracture 6 CORE BUILDUP, INCL ANY PINS WHEN REQ Routine 01/20/2025 2:00 PM EDT Secondary dental caries associated with failed or defective dental denominational Full coverage crown needed for tooth at risk for fracture 6 CROWN PREP Routine 01/20/2025 2:00 PM EDT Secondary dental caries associated with failed or defective dental denominational Full coverage crown needed for tooth at risk for fracture PROPHYLAXIS - ADULT Routine 07/07/2024 2 :00 PM EST BITEWINGS - 2 RADIOGRAPHIC IMAGES Routine 05/14/2024 3:00 PM EST Dental caries Secondary dental caries associated with failed or defective dental denominational Partial edentulism, unspecified edentulism class PERIODIC ORAL EVALUATION - ESTABLISHED PATIENT Routine 05/14/2024 3:00 PM EST Dental caries Secondary dental caries associated with failed or defective dental denominational Partial edentulism, unspecified edentulism class HM COLONOSCOPY Routine 12/12/2021 HIV 1/2 ANTIGEN/ANTIBODY, FOURTH GENERATION W/RFL Routine 01/22/2021 10:32 AM EDT from Last 3 Months or Most Recently Relevant to Health Maintenance Results * TSH W/Reflex to FT4 (03/02/2025 2:52 PM EDT) TSH reflex Free T4 0.86 0.32 - 4.0 uIU/mL [facility] Blood Venous blood specimen / Unknown 03/02/2025 2:52 PM EDT 03/02/2025 6:34 PM EDT us Luis Leon MD LAB BLOOD ORDERABLES Final Result [facility] [address] [place] [phone] * (ABNORMAL) CBC auto differential (03/02/2025 2:52 PM EDT) White Blood Count 7.3 4.8 - 10.8 X10*3/uL [facility] Red Blood Count 4.73 4.60 - 5.80 X10*6/uL [facility] Hemoglobin 13.0(L) 14.0 - 18.0 g/dl [facility] Hematocrit 41.8(L) 42.0 - 52.0 % [facility] Mean Corpuscular Volume 88.4 80.0 - 98.0 fL [facility] Mean Corpuscular Hemoglobin 27.5 27.0 - 33.0 pg [facility] Mean Corpuscular HGB Conc 31.1 31.0 - 36.0 g/dl [facility] Red Cell Distribution Width 14.4 11.0 - 16.0 % [facility] Platelet Count 263 160 - 400 X10*3/uL [facility] Mean Platelet Volume 10.4 9.4 - 12.4 fL [facility] Neutrophils Percent Auto 67.2 45 - 73 % [facility] Imm Gran Pct Auto 0.3 0.0 - 0.4 % [facility] Lymphocytes Percent Auto 25.7 20 - 40 % [facility] Monocytes Percent Auto 6.0 2 - 11 % [facility] Eosinophils Percent Auto 0.5 0 - 4 % [facility] Basophils Percent Auto 0.3 0 - 2 % [facility] NRBC Pct Auto 0.0 0.0 - 0.2 /100WBC [facility] Neutrophils Absolute Auto 4.9 2.0 - 8.3 x10*3/uL [facility] Imm Gran Abs Auto 0.02 0.00 - 0.03 X10*3/uL [facility] Lymphocytes Absolute Auto 1.9 1.2 - 4.9 X10*3/uL [facility] Monocytes Absolute Auto 0.4 0.1 - 1.2 X10*3/uL [facility] Eosinophils Absolute Auto 0.0 0.0 - 0.4 X10*3/uL [facility] Basophils Absolute Auto 0.0 0.0 - 0.2 X10*3/uL [facility] NRBC Abs Auto 0.000 0.0 - 0.012 X10*3/uL [facility] Blood Venous blood specimen / Unknown 03/02/2025 2:52 PM EDT 03/02/2025 6:34 PM EDT us Luis Leon MD LAB BLOOD ORDERABLES Final Result [facility] [address] [place] [address] [phone] * (ABNORMAL) Lipid Panel, Standard (03/02/2025 2:52 PM EDT) Triglycerides 123 <150 mg/dL [facility] Comment:Desirable Triglyceri de: less than 150 mg/dLBorderline High Triglyceride 150-199 mg/dLHigh Triglyceride: 200-499 mg/dLVery High Triglyceride: greater than or equal to 5OO mg/dL Cholesterol 229(H) <200 mg/dL [facility] Comment:Desirable Cholestero l: less than 200 mg/dLBorderline High Cholesterol: 200-239 mg/dLHigh Cholesterol: greater than 239 mg/dL LDL Cholesterol Calculated 160(H) <100 mg/dL [facility] Comment:Desirable LDL: less than 100 mg/dLNear Optimal/Above Optimal LDL: 110- 129 mg/dLBorderline High LDL: 130-159 mg/dLHigh LDL: 160-189 mg/dLVery High LDL: greater than or equal to 190 mg/dL HDL Cholesterol 45 >40 mg/dL [facility] Comment:Desirable HDL: great er than 40 mg/dL Note: This HDL assay may give artificially low results in patients with liver disease. Blood Venous blood specimen / Unknown 03/02/2025 2:52 PM EDT 03/02/2025 6:34 PM EDT us Luis Leon MD LAB BLOOD ORDERABLES Final Result [facility] [address] [place] [address] [phone] * (ABNORMAL) Comprehensive Metabolic Panel (03/02/2025 2:52 PM EDT) Sodium 141 135 - 145 mmol/L [facility] Potassium 4.3 3.3 - 5.1 mmol/L [facility] Chloride 104 96 - 108 mmol/L [facility] Carbon Dioxide 31(H) 22 - 29 mmol/L [facility] Anion Gap 10(L) 12 - 20 [facility] Urea Nitrogen (BUN) 10 9 - 16 mg/dL [facility] Creatinine, Serum 0.90 0.5 - 1.4 mg/dL [facility] Estimated Glomerular Filt Rate >60 [facility] Comment:Chronic Kidney Disea se: Estimated GFR < 60 mL/min/1.25m8Kwetls Kidney Disease: Estimated GFR < 15 mL/min/1.73m2 Glucose 77 60 - 115 mg/dL [facility] Calcium 9.4 8.4 - 10.2 mg/dL [facility] Bilirubin, Total 0.2 0.0 - 1.0 mg/dL [facility] Aspartate Amino Transferase 60(H) 5 - 37 U/L [facility] Alanine Aminotransferase 47(H) 0 - 40 U/L [facility] Total Protein 7.3 6.5 - 8.0 g/dL [facility] Albumin Level 4.6 3.5 - 5.0 g/dL [facility] Alkaline Phosphatase 78 39 - 117 U/L [facility] Blood Venous blood specimen / Unknown 03/02/2025 2:52 PM EDT 03/02/2025 6:34 PM EDT us Luis Leon MD LAB BLOOD ORDERABLES Final Result Performing Organization Address City/[facility]/ZIP Co de Phone Number [facility] [address] [place] [address] [phone] * Colonoscopy (12/12/2021) Colonoscopy Normal Normal Narrative Rhina Hairston - 12/12/2021 Recommended 10 year follow up Historical Provider HEALTH MAINTENANCE Final Result * HIV 1/2 ANTIGEN/ANTIBODY,FOURTH GENERATION W/RFL (01/22/2021 10:32 AM EDT) HIV-1/2 ANTIGEN AND ANTIBODIES, 4TH GENERATION W/ REFLEX NON-REACT JAY NON-REACT JAY [facility] Comment: HIV-1 antigen and HIV-1/HIV-2 antibodies were not detected. There is no laboratory evidence of HIV infection. PLEASE NOTE: This information has been disclosed to you from records whose confidentiality may be protected by state law. If your state requires such protection, then the state law prohibits you from making any further disclosure of the information without the specific written consent of the person to whom it pertains, or as otherwise permitted by law. A general authorization for the release of medical or other information is NOT sufficient for this purpose. For additional information please refer to http://[email or web address].ADmantX/faq/PBJ689 (This link is being provided for informational/ educational purposes only.) The performance of this assay has not been clinically validated in patients less than 2 years old. 01/22/2021 10:3 2 AM EDT Luis Leon MD LAB BLOOD ORDERABLES Final Result [facility] [address] from Last 3 Months or Most Recently Relevant to Health Maintenance Insurance [id number] STAND ADULT Care Teams Monitoring Engineer Relationship Specialty Start Date End Date Luis Leon MD [address] [place] [phone] PCP - General Internal Medicine 12/21/20
--- OUTSIDE RECORDS SUMMARY | 2025-03-02 21:08 | XMS_ITS | Encounter Summary ---
Author Organization [employer] Address [address] [facility] [address]t [place] [address] Care Team Providers Care Hog Operator Name Role Phone Luis Leon MD Primary Care Provider [phone] Reason for Visit * Reason Onset Date Comments Med Refill 11/11/2023 Encounter Details Date Type Department Care Team (Late st Contact Info) Description 11/11/2023 Refill [facility] [address] [place] [address] Luis Leon MD [address] [place] [address] Intertrigo of web of toe Social History [...] 11:00 AM EST Office Visit [facility] [address] [place] [address] Niels Levin, DMD [address] [place] [address] documented as of this encounter Visit Diagnoses Diagnosis Intertrigo of web of toe documented in this encounter Additional Health Concerns Assessment Noted Time PHQ-9 Depression Total Score: 18 024 10:20 AM EDT documented as of this encounter Care Teams Hog Operator Relationship Specialty Start Date End Date Luis Leon MD [address] [place] [address] PCP - General Internal Medicine 12/21/20 documented as of this encounter
--- OUTSIDE RECORDS SUMMARY | 2025-03-02 21:08 | XMS_ITS | Encounter Summary ---
Author Organization [employer] Address [address] [facility] [address]t [place] [address] Care Team Providers Care Email Marketing Processor Name Role Phone Luis Leon MD Primary Care Provider [phone] Reason for Visit * Reason Onset Date Comments Med Refill 11/27/2024 Encounter Details Date Type Department Care Team (Late st Contact Info) Description 11/27/2024 Refill [facility] [address] [place] [address] Luis Leon MD [address] [place] [address] Other male erectile dysfunction Social History Tobacco [...] [facility] [address] [place] [address] Niels Levin, RODNEY [address] [place] [address] documented as of this encounter Visit Diagnoses Diagnosis Other male erectile dysfunction documented in this encounter Additional Health Concerns Assessment Noted Time PHQ-9 Depression Total Score: 11 025 2:09 PM EST documented as of this encounter Care Teams Email Marketing Processor Relationship Specialty Start Date End Date Luis Leon MD [address] [place] [address] PCP - General Internal Medicine 12/21/20 documented as of this encounter
--- OUTSIDE RECORDS SUMMARY | 2025-03-02 21:08 | XMS_ITS | Encounter Summary ---
Author Organization [employer] Address [address] [place] [address] [address] [place] [address] Care Team Providers Care Ice Grinder Name Role Phone Luis Leon MD Primary Care Provider [phone] Reason for Visit * Reason Onset Date Comments Med Refill 03/02/2025 Encounter Details Date Type Department Care Team (Late st Contact Info) Description 03/02/2025 Refill [facility] [address] [place] [address] Norma Jones MD [address] [place] [address] Migraine without aura and without status migrainosus, not intractable Social History Tobacco Use Types Packs/Day Years [...] Description 03/16/2025 11:00 AM EST Office Visit [facility] [address] [place] [address] Niels Levin, RODNEY [address] [place] [address] documented as of this encounter Visit Diagnoses Diagnosis Migraine without aura and without status migrainosus, not intractable documented in this encounter Additional Health Concerns Assessment Noted Time PHQ-9 Depression Total Score: 11 025 2:09 PM EST documented as of this encounter Care Teams Ice Grinder Relationship Specialty Start Date End Date Luis Leon MD [address] [place] [address] PCP - General Internal Medicine 12/21/20 documented as of this encounter
--- OUTSIDE RECORDS SUMMARY | 2025-03-02 21:08 | XMS_ITS | Encounter Summary ---
Author Organization [employer] Address [address] [facility] 7t [place] [address] Care Team Providers Care Gel Coater Name Role Phone Luis Leon MD Primary Care Provider [phone] Reason for Visit * Reason Comments Med Change Request Encounter Details Date Type Department Care Team ([facility] st Contact Info) Description 10/06/2023 Refill [facility] [address] [place] [address] Luis Leon MD [address] [place] [address] Other male erectile dysfunction Social History Tobacco [...] Upcoming Encounters Date Type Department Care Team ([facility] st Contact Info) Description 03/16/2025 11:00 AM EST Office Visit [facility] [address] [place] [address] Niels Levin, RODNEY [address] [place] [address] documented as of this encounter Visit Diagnoses Diagnosis Other male erectile dysfunction documented in this encounter Additional Health Concerns Assessment Noted Time PHQ-9 Depression Total Score: 18 024 10:20 AM EDT documented as of this encounter Care Teams Gel Coater Relationship Specialty Start Date End Date Luis Leon MD [address] [place] [address] PCP - General Internal Medicine 12/21/20 documented as of this encounter
--- OUTSIDE RECORDS SUMMARY | 2025-03-02 21:08 | XMS_ITS | Encounter Summary ---
Author Organization [employer] Address [address] [place] [address] 7 [place] [address] Care Team Providers Care Traffic Monitor Specialist Name Role Phone Luis Leon MD Primary Care Provider [phone] Encounter Details Date Type Department Care Team (Late Contact Info) Description 09/24/2022 Orders Only [facility] MED & PED[facility] [address] [place] [address] Eugenia Vanegas LPN Social History Tobacco Use Types Packs/Day Years [...] Encounters Date Type Department Care Team (Late Contact Info) Description 03/16/2025 11:00 AM EST Office Visit [facility] ADULT DENTAL [address] [place] [address] Niels Levin DMD [address] [place] [address] documented as of this encounter Visit Diagnoses Not on filedocumented in this encounter Additional Health Concerns Assessment Noted Time PHQ-9 Depression Total Score: 12 023 2:15 PM EST documented as of this encounter Care Teams Traffic Monitor Specialist Relationship Specialty Start Date End Date Luis Leon MD [address] [place] [id number] PCP - General Internal Medicine 12/21/20 documented as of this encounter
--- OUTSIDE RECORDS SUMMARY | 2025-03-02 21:08 | XMS_ITS | Clinical Summary ---
Author Organization [facility] [address] [facility] [facility] Address [address] [place] [address] Phone Care Team Providers Care Firearms Assembly Supervisor Name Role Phone Luis Leon MD Primary Care Provider [phone] Allergies No known active allergies Social History Tobacco Use Types Packs/Day Years Used Date Smoking Tobacco: Never Assessed Sex and Gender Information Value Date Recorded Sex Assigned at Not on file Legal Sex Male 4:17 AM EST Gender Identity Not on file Sexual Orientation Not on file Plan of Treatment Health Maintenance Due Date Last Done Comments Colorectal Cancer Screening: Colonoscopy 1974 DTaP,Tdap,and Td Vaccines (1 - Tdap) 1993 Hepatitis B Vaccines (1 of 3 - 19+ 3-dose series) 1993 Cholesterol Screening (Lipid Panel) 04/14/2022 HIV Screening 04/14/2022 Hepatitis C Screening 04/14/2022 Social Influencers of Health Screening 04/14/2022 Pneumococcal Vaccine: 50+ Ye ars (1 of 1 - PCV) 01/03/2024 Zoster Vaccines (1 of 2) 01/03/2024 Depression Screening 05/12/2024 COVID-19 Vaccine (1 - 2023-2 5 season) 2025 Influenza Vaccine (#1) 2025 RSV Immunization Adult Patie nts (1 - 1-dose 75+ series) 2049 HIB Vaccines Aged Out No longer eligi [...] on patient's age to complete this topic MMR Vaccines Aged Out No longer eligi ble based on patient's age to complete this topic Meningococcal ACWY Vaccine Aged Out N o longer eligible based on patient's age to complete this topic Meningococcal B Vaccine Aged Out No l onger eligible based on patient's age to complete this topic RSV Immunization Patients Un addi 20 months Aged Out No longer eligible b ased on patient's age to complete this topic Varicella Vaccines Aged Out No longer eligible based on patient's age to complete this topic Care Teams Firearms Assembly Supervisor Relationship Specialty Start Date End Date Luis Leon MD [address] [place] [address] PCP - General Internal Medicine 05/08/21
--- OUTSIDE RECORDS SUMMARY | 2025-03-02 21:08 | XMS_ITS | Encounter Summary ---
Author Organization [employer] Address [address] [place] [address] 7t [place] [address] Care Team Providers Care Job Change Crew Member Name Role Phone Luis Leon MD Primary Care Provider [phone] Reason for Visit * Reason Onset Date Comments Med Refill 01/18/2025 Encounter Details Date Type Department Care Team (Late st Contact Info) Description 01/18/2025 Refill [facility] MED & PEDS [address] [place] [address] Norma Jones MD [address] [place] [address] Migraine without aura and without status migrainosus, not intractable; Primary insomnia Social History Tobacco Use Types [...] 11:00 AM EST Office Visit [facility] ADULT DENTAL [address] [place] [address] Niels Levin DMD [address] [place] [address] documented as of this encounter Visit Diagnoses Diagnosis Migraine without aura and without status migrainosus, not intractable Primary insomnia Persistent disorder of initiating or maintaining sleep documented in this encounter Additional Health Concerns Assessment Noted Time PHQ-9 Depression Total Score: 11 025 2:09 PM EST documented as of this encounter Care Teams Job Change Crew Member Relationship Specialty Start Date End Date Luis Leon MD [address] [place] [address] PCP - General Internal Medicine 12/21/20 documented as of this encounter
--- OUTSIDE RECORDS SUMMARY | 2025-03-02 21:08 | XMS_ITS | Encounter Summary ---
Author Organization [employer] Address [address] [facility] 7t [place] [address] Care Team Providers Care Key Sander Name Role Phone Luis Leon MD Primary Care Provider [phone] Reason for Visit * Reason Onset Date Comments Med Refill 02/01/2025 Encounter Details Date Type Department Care Team (Late st Contact Info) Description 02/01/2025 Refill [facility] [address] [place] [address] Luis Leon MD [address] [place] [address] Other male erectile dysfunction Social History Tobacco [...] 11:00 AM EST Office Visit [facility] ADULT DENT[facility] [address] [place] [address] Niels Levin, RODNEY [address] [place] [address] documented as of this encounter Visit Diagnoses Diagnosis Other male erectile dysfunction documented in this encounter Additional Health Concerns Assessment Noted Time PHQ-9 Depression Total Score: 11 025 2:09 PM EST documented as of this encounter Care Teams Key Sander Relationship Specialty Start Date End Date Luis Leon MD [address] [place] [address] PCP - General Internal Medicine 12/21/20 documented as of this encounter
--- OUTSIDE RECORDS SUMMARY | 2025-03-02 21:08 | XMS_ITS | Encounter Summary ---
Author Organization [employer] Address [address] [place] [address] 7 [place] [address] Care Team Providers Care Law Examiner Name Role Phone Luis Leon MD Primary Care Provider [phone] Reason for Visit * Reason Comments Med Refill Encounter Details Date Type Department Care Team (Late st Contact Info) Description 10/28/2022 Refill [facility] & PEDS [address] [place] [address] Luis Leon MD [address] [place] [address] Primary insomnia Social History Tobacco Use Types [...] 03/16/2025 11:00 AM EST Office Visit [facility] AD[facility] DENT[facility] [address] [place] [address] Niels Levin, RODNEY [address] [place] [address] documented as of this encounter Visit Diagnoses Diagnosis Primary insomnia Persistent disorder of initiating or maintaining sleep documented in this encounter Additional Health Concerns Assessment Noted Time PHQ-9 Depression Total Score: 12 023 2:15 PM EST documented as of this encounter Care Teams Law Examiner Relationship Specialty Start Date End Date Luis Leon MD [address] [place] [address] PCP - General Internal Medicine 12/21/20 documented as of this encounter
--- OUTSIDE RECORDS SUMMARY | 2025-03-02 21:08 | XMS_ITS | Encounter Summary ---
Author Organization [employer] Address [address] [place] [address] 7 [place] [address] Care Team Providers Care Air Technician Name Role Phone Luis Leon MD Primary Care Provider [phone] Reason for Visit * Reason Onset Date Comments Med Refill 11/01/2022 Encounter Details Date Type Department Care Team (Late Contact Info) Description 11/01/2022 Refill [facility] [address] [place] [address] Luis Leon MD [address] [place] [address] Primary insomnia; Melasma Social History Tobacco Use Types Packs/Day Years [...] Visit [facility] [address] [place] [address] Niels Levin, DMD [address] [place] [address] documented as of this encounter Visit Diagnoses Diagnosis Primary insomnia Persistent disorder of initiating or maintaining sleep Melasma Other dyschromia documented in this encounter Additional Health Concerns Assessment Noted Time PHQ-9 Depression Total Score: 12 023 2:15 PM EST documented as of this encounter Care Teams Air Technician Relationship Specialty Start Date End Date Luis Leon MD [address] [place] [address] PCP - General Internal Medicine 12/21/20 documented as of this encounter
--- OUTSIDE RECORDS SUMMARY | 2025-03-02 21:08 | XMS_ITS | Encounter Summary ---
Author Organization [employer] Address [address] [facility] 7t [place] [address] Care Team Providers Care Janitorial Assistant Name Role Phone Luis Leon MD Primary Care Provider [phone] Encounter Details Date Type Department Care Team (Late st Contact Info) Description 01/24/2025 Orders Only [facility]EDS [address] [place], [place] [id number] Luis Leon MD [address] [place] [address] Social History Tobacco Use Types Packs/Day Years [...] Description 03/16/2025 11:00 AM EST Office Visit [facility] ADULT DENTAL [address] [place] [address] Niels Levin, DMD [address] [place] [address] documented as of this encounter Visit Diagnoses Not on filedocumented in this encounter Additional Health Concerns Assessment Noted Time PHQ-9 Depression Total Score: 11 025 2:09 PM EST documented as of this encounter Care Teams Janitorial Assistant Relationship Specialty Start Date End Date Luis Leon MD [address] [place] [address] PCP - General Internal Medicine 12/21/20 documented as of this encounter
--- OUTSIDE RECORDS SUMMARY | 2025-03-02 21:08 | XMS_ITS | Encounter Summary ---
Author Organization [employer] Address [address] [place] [address] [address]t [place] [address] Care Team Providers Care Change Number Operator Name Role Phone Luis Leon MD Primary Care Provider [phone] Reason for Visit * Reason Onset Date Comments Med Refill 11/27/2024 Encounter Details Date Type Department Care Team (Late st Contact Info) Description 11/27/2024 Refill [facility] MED & PED[facility] [address] [place] [address] Norma Jones MD [address] [place] [address] Nel Social History Tobacco Use Types Packs/Day [...] 11:00 AM EST Office Visit [facility] AD[facility] D[facility] [address] [place] [address] Niels Levin, DMD [address] [place] [address] documented as of this encounter Visit Diagnoses Diagnosis Melasma Other dyschromia documented in this encounter Additional Health Concerns Assessment Noted Time PHQ-9 Depression Total Score: 11 025 2:09 PM EST documented as of this encounter Care Teams Change Number Operator Relationship Specialty Start Date End Date Luis Leon MD [address] [place] [address] PCP - General Internal Medicine 12/21/20 documented as of this encounter
--- OUTSIDE RECORDS SUMMARY | 2025-03-02 21:08 | XMS_ITS | Encounter Summary ---
Author Organization [employer] Address [address] [facility] 7t [place] [address] Care Team Providers Care Peer Health Promoter Name Role Phone Luis Leon MD Primary Care Provider [phone] Reason for Visit * Reason Onset Date Comments Med Refill 02/01/2025 Encounter Details Date Type Department Care Team (Late st Contact Info) Description 02/01/2025 Refill [facility] PEDS [address] [place] [address] Luis Leon MD [address] [place] [address] Primary insomnia Social History Tobacco Use Types [...] Description 03/16/2025 11:00 AM EST Office Visit [facility] ADULT DENT[facility] [address] [place] [address] Niels Levin, RODNEY [address] [place] [address] documented as of this encounter Visit Diagnoses Diagnosis Primary insomnia Persistent disorder of initiating or maintaining sleep documented in this encounter Additional Health Concerns Assessment Noted Time PHQ-9 Depression Total Score: 11 025 2:09 PM EST documented as of this encounter Care Teams Peer Health Promoter Relationship Specialty Start Date End Date Luis Leon MD [address] [place] [address] PCP - General Internal Medicine 12/21/20 documented as of this encounter
--- OUTSIDE RECORDS SUMMARY | 2025-03-02 21:08 | XMS_ITS | Encounter Summary ---
Author Organization [employer] Address [address] [facility] [address]t [place] [address] Care Team Providers Care Asparagus Cutter Name Role Phone Luis Leon MD Primary Care Provider [phone] Reason for Visit * Reason Onset Date Comments Nurse Triage 03/01/2025 Encounter Details Date Type Department Care Team (Late st Contact Info) Description 03/01/2025 Telephone [facility] [address] [place] [address] Luis Leon MD [address] [place] [address] Nurse Triage Social History Tobacco Use Types Packs/Day Years [...] encounter Miscellaneous Notes * Telephone Encounter - Betty Iglesias RN - 03/01/2025 9:32 AM EDT TC placed to pt for triage. No answer, LVM to call office back and ask to speak to the triage nurses. * Telephone Encounter - Reinier Lock - 03/01/2025 9:25 AM EDT Symptoms: Knee Pain - Not From Injury, Foot or Ankle Pain - Not From Injury Outcome: Schedule an urgent appointment (within 1 hour) or talk to a nurse or provider soon Reason: Trouble walking (worsening) Please contact pt at [phone]. documented in this encounter Plan of Treatment Upcoming Encounters Date Type Department Care Team (Late st Contact Info) Description 03/16/2025 11:00 AM EST Office Visit [facility] ADULT DENT[facility] [address] [place] [address] Niels Levin, DMD [address] [place] [address] documented as of this encounter Visit Diagnoses Not on filedocumented in this encounter Additional Health Concerns Assessment Noted Time PHQ-9 Depression Total Score: 11 025 2:09 PM EST documented as of this encounter Care Teams Asparagus Cutter Relationship Specialty Start Date End Date Luis Leon MD [address] [place] [address] PCP - General Internal Medicine 12/21/20 documented as of this encounter
[2025-03-03 04:03] LABS: ~HepC Num1 0.12 S/CO (0.00-0.79); ~Hepatitis C Antibody Nonreactive (Nonreactive)
== END 2025-03-02 14:52 | disposition home or self-care (01) ==
LOC: HO.CHCLDS 14:51
PROVIDERS: Visit Provider Internal Medicine
DX: Z00.00 Encounter for general adult medical examination without abnormal findings (principal); Z11.59 Encounter for screening for other viral diseases; E78.00 Pure hypercholesterolemia, unspecified; I10 Essential (primary) hypertension
CPT/HCPCS: 36415; 80053; 80061; 84443; 85025; 86803